=== PATIENT | female | born 1960 | race African-American/Black ===

== ENCOUNTER 2018-10-03 12:06 | Emergency (ER) | payer OTHER | END 2018-10-03 12:35 | disposition home or self-care (01) | LOC: ERS 12:06 | DX: H10.12 Acute atopic conjunctivitis, left eye (principal); K21.9 Gastro-esophageal reflux disease without esophagitis; M10.9 Gout, unspecified; E11.40 Type 2 diabetes mellitus with diabetic neuropathy, unspecified; I10 Essential (primary) hypertension; Z79.899 Other long term (current) drug therapy | CPT/HCPCS: 99282 ==

== ENCOUNTER 2020-07-05 07:06 | Outpatient (CLI) | payer OTHER ==
[2020-07-05 12:48] LABS: #Eosinphils 0.3 10x3/uL (0.0-0.5); #Monocytes 0.3 10x3/uL (0.0-1.1); #Neutrophils 7.5 10x3/uL (1.5-8.4); %Basophils 0.4 % (0.0-2.0); %Eosinophils 3.4 % (0.0-6.0); %Lymphocytes 13.6 % (18.0-47.0); %Neutrophils 78.9 % (40.0-75.0); Hemoglobin 12.5 g/dL (12.0-16.0); Mean Corpuscular HGB CONC 30.3 G/DL (32.0-36.0); Mean Corpuscular Hemoglobin 27.8 PG (27.0-33.0); Mean Corpuscular Volume 91.8 fl (80.0-100.0); Mean Platelet Volume 9.3 fl (7.4-10.4); Platelet Count 258 10x3/uL (130-400); RBC Distribution Width 15.9 % (11.5-14.5); White Blood Cell (WBC) Count 9.6 10x3/uL (4.5-11.0)
[2020-07-05 13:09] LABS: Anion Gap 17 mmol/L (10-20); BUN (Urea Nitrogen) 16 mg/dL (9.8-20.1); Calc. Creatinine Clearance 0 mL/min (70-130); Calcium 9.1 mg/dL (7.8-10.44); Carbon Dioxide 25 mmol/L (22-29); Chloride 95 mmol/L (98-107); Glucose 407 mg/dL (70-105); Potassium 4.2 mmol/L (3.5-5.1); Sodium 133 mmol/L (136-145)
[2020-07-06 09:25] LABS: SARS-CoV-2 MS2 Positive; SARS-CoV-2 N Gene Negative; SARS-CoV-2 S Gene Negative; SARS-CoV-2 by NAA Not Detected (NotDetected); SARS-CoV-2 orf1ab Negative
--- NOTE | 2020-07-09 07:00 | EKG ---
Test Reason : PREOP Blood Pressure : / mmHG Vent. Rate : 084 BPM Atrial Rate : 084 BPM P-R Int : 126 ms QRS Dur : 084 ms QT Int : 404 ms P-R-T Axes : 034 003 074 degrees QTc Int : 477 ms Normal sinus rhythm Inferior infarct , age undetermined , cannot exclude inferior wall aneurysm Cannot rule out Anterior infarct , age undetermined Abnormal ECG No previous ECGs available Confirmed by TREVIN PRYOR, LOS ([id number]) on 07/09/2020 6:59:32 AM Referred By: Deanna LUTZ Confirmed By:LOS ZHONG MD
== END 2020-07-05 07:07 | disposition home or self-care (01) ==
LOC: LABBT 07:06
PROVIDERS: ATTEND Specialist
DX: Z01.818 Encounter for other preprocedural examination (principal); C50.911 Malignant neoplasm of unspecified site of right female breast; Z20.828 Contact with and (suspected) exposure to other viral communicable diseases
CPT/HCPCS: 80048; 85025; 87635; 93005; 93010; U0003

== ENCOUNTER 2020-07-08 07:02 | Day surgery (SDC) | payer OTHER ==
[2020-07-07 10:48] VITALS: BMI 36.5
--- NOTE | 2020-07-08 08:48 | NM ---
Lymphoscintigraphy right breast HISTORY: Right breast cancer. FINDINGS: A total volume of 1 cc liquid containing 420 uCi of technetium 99m filtered sulfur colloid was injected into the skin at the 12:00, 3:00, 6:00, and 9:00 periareolar position of the right breast. Injection sites were massaged by the patient and imaging performed. Immediate imaging shows a focus of increased radiotracer uptake at the axillary tail of the right vin ast. Patient tolerated the procedure well and was transferred to day surgery in good condition. IMPRESSION : Technically successful lymphoscintigraphy right breast revealing a single sentinel lymph node at the axillary tail.
[2020-07-08] MEDS ORDERED: Ketorolac Tromethamine 30 MG/ML VIAL ONE (09:50)
[2020-07-08] MEDS ORDERED: Acetaminophen 500 MG TAB ONE (09:50)
[2020-07-08] MEDS ORDERED: Glycopyrrolate 0.2 MG/ML 5 ML SYRINGE ONE (09:54)
[2020-07-08] MEDS ORDERED: Lidocaine 1% PF 5 ML VIAL ONE (09:54)
[2020-07-08] MEDS ORDERED: PHENYLEPHRINE-NS 100 MCG/ML 10 ML SYRINGE ONE (09:54)
[2020-07-08] MEDS ORDERED: Rocuronium Bromide 10 MG/ML (10ML VIAL) ONE (09:54)
[2020-07-08] MEDS ORDERED: PROPOFOL 200 MG/20 ML VIAL ONE (09:54)
[2020-07-08] MEDS ORDERED: Insulin Regular 300 UNITS/3 ML VIAL ONE (10:02)
[2020-07-08] MEDS ORDERED: Lidocaine 1% w/Epinephrine 1:100K 20 ML VIAL ONE (10:24)
[2020-07-08] MEDS ORDERED: Bupivacaine 0.25% HCL 30 ML VIAL ONE (10:24)
[2020-07-08] MEDS ORDERED: Isosulfan Blue 50 MG/5 ML VIAL ONE (10:24)
[2020-07-08] MEDS ORDERED: Fentanyl 100 MCG/2 ML VIAL ONE (10:26)
--- NOTE | 2020-07-09 15:10 | OP ---
DATE OF PROCEDURE: 07/08/2020 PREOPERATIVE DIAGNOSIS: Right breast cancer. POSTOPERATIVE DIAGNOSIS: Right breast cancer. OPERATION PERFORMED: Right mastectomy with a sentinel lymph node biopsy. ANESTHESIA: General endotracheal. INDICATIONS: The patient is a 60-year-old obese black female. She has poorly controlled diabetes with blood sugars frequently in the 200 to 400 range. She was recently diagnosed with the breast cancer at the 12 o'clock radian of the right breast, fairly close to the nipple-areolar complex. After discussing options with her, she has elected to proceed with a mastectomy rather than breast-conserving surgery. She is not interested in reconstruction. DESCRIPTION OF OPERATION: Informed consent was obtained. The patient was taken to the operating room, where general endotracheal anesthesia was obtained with the patient in the supine position. Lymphoscintigraphy was performed preoperatively, identifying right axillary sentinel lymph nodes. In the operating room, under general anesthesia, I infiltrated 3 cc of Lymphazurin in the periareolar subdermal tissue of the right breast. This was then massaged for 5 minutes. The breast and axilla were then prepped with ChloraPrep and draped in sterile fashion. An elliptical incision was created across the right chest wall to include the nipple-areolar complex. It was carried from the sternal border medially to the inferior aspect of the axilla laterally. Along the superior aspect, the incision was carried through skin and subcutaneous tissue, and laterally, the dissection was carried toward the axilla. The Neoprobe was utilized to identify areas of maximum radio intensity. Dissecting deeply through the clavipectoral fascia, identified the dominant sentinel lymph node, which was blue-stained and highly radioactive. This was dissected circumferentially, and all investing lymphatics were divided between clamps and 3-0 silk ties. I then identified a 2nd sentinel lymph node that had much less radioactivity and no blue-staining. This was dissected circumferentially and removed intact as well. These were submitted for a touch prep, and intraoperative evaluation revealed no evidence of malignancy in either lymph node. Attention was returned to the breast. Flaps were raised along the incision line superiorly, inferiorly, and medially down to the muscular fascia. The breast was then swept off the chest wall in a medial to lateral fashion. Lateral to the pectoralis, the dissection was completed as there was no need to dissect further within the axilla. The specimen was removed intact and tagged with suture for orientation and submitted to Pathology. I then carefully tailored the skin edges. A dog-ear correction was performed medially with inferior diversion. In the lateral aspect, attempt was made to remove the redundant skin and fatty tissue to avoid an excessive axillary mass. After the skin edges were carefully tailored, the wound was irrigated with sterile water, and all irrigant was aspirated. The wound was meticulously inspected for hemostasis, which was intact. I placed two #19 round fluted drains, one into the axilla and one across the chest wall. These were each secured externally with 3-0 nylon suture. The wound was then closed in layers with 3-0 Vicryl and skin tracee. A dressing was applied using Xeroform gauze, fluffed gauze, and a 6-inch Nando wrap dressing. There were no complications. Blood loss was minimal. The patient tolerated the procedure well and was taken to recovery room in stable condition. Job ID: [id number]
== END 2020-07-08 15:53 | disposition home or self-care (01) ==
LOC: SDC 07:02
PROVIDERS: ATTEND Specialist
PROC: 07B50ZX Excision of Right Axillary Lymphatic, Open Approach, Diagnostic (ICD-10-PCS; principal; 2020-07-08)
PROC: 0HTT0ZZ Resection of Right Breast, Open Approach (ICD-10-PCS; principal; 2020-07-08)
DX: C50.811 Malignant neoplasm of overlapping sites of right female breast (principal); E10.40 Type 1 diabetes mellitus with diabetic neuropathy, unspecified; M10.9 Gout, unspecified; I10 Essential (primary) hypertension; G47.30 Sleep apnea, unspecified; K21.9 Gastro-esophageal reflux disease without esophagitis; Z17.0 Estrogen receptor positive status [ER+]; Z79.4 Long term (current) use of insulin; Z79.82 Long term (current) use of aspirin; Z79.899 Other long term (current) drug therapy; Z88.0 Allergy status to penicillin
CPT/HCPCS: 36416; 78195; 88307; 88331; 88342; A9541; J0690; J1815; J1885; J2704; J3010; Q9968; S0020

== ENCOUNTER 2020-07-09 11:36 | Day surgery (SDC) | payer OTHER ==
[2020-07-09] MEDS ORDERED: Lidocaine 1% PF 5 ML VIAL ONE (12:54)
[2020-07-09] MEDS ORDERED: PROPOFOL 200 MG/20 ML VIAL ONE (12:54)
[2020-07-09] MEDS ORDERED: PHENYLEPHRINE-NS 100 MCG/ML 10 ML SYRINGE ONE (12:54)
[2020-07-09] MEDS ORDERED: ePHEDrine/0.9% NaCl/PF SYRINGE 50 mg/10 ml ONE (12:54)
[2020-07-09] MEDS ORDERED: Ondansetron PF 4 MG/2 ML Vial ONE (12:54)
[2020-07-09] MEDS ORDERED: Acetaminophen 500 MG TAB ONE (13:49)
[2020-07-09] MEDS ORDERED: Ketorolac Tromethamine 30 MG/ML VIAL ONE (13:49)
[2020-07-09] MEDS ORDERED: Levofloxacin 500 mg/D5W 100 ml Premix Bag ONE (13:49)
[2020-07-09] MEDS ORDERED: Insulin Regular 300 UNITS/3 ML VIAL ONE (13:49)
[2020-07-09] MEDS ORDERED: Fentanyl 100 MCG/2 ML VIAL ONE (14:06)
--- NOTE | 2020-07-10 20:28 | OP ---
DATE OF PROCEDURE: 07/09/2020 PREOPERATIVE DIAGNOSIS: Right mastectomy hematoma. POSTOPERATIVE DIAGNOSIS: Right mastectomy hematoma. OPERATION PERFORMED: Right mastectomy exploration with hematoma evacuation and control of bleeding. ANESTHESIA: General endotracheal. INDICATIONS: The patient is a 60-year-old black female. She had undergone a right mastectomy and sentinel lymph node biopsy yesterday. This was uneventful and there was negligible blood loss. Some time during the night, she apparently began to have bleeding within her mastectomy wound, which led to her drain clogging with clotted blood. She presented to my office and she had an obvious mastectomy hematoma and I recommended return to the operating room for exploration and evacuation. DESCRIPTION OF OPERATION: Informed consent was obtained. The patient was taken to the operating room, where general anesthesia obtained, patient supine position. Right mastectomy incision was opened in the middle segment of the incision. The tracee were removed and the Vicryl sutures were incised. A large volume of clotted blood was removed from within the mastectomy space. I then irrigated the wound with peroxide and saline to gain a clean operative field. I then carefully explored and examined it for any bleeding. There was one dominant pulsatile arterial bleeding to the lateral aspect of the pectoralis. This was identified and ligated. There were couple of other small bleeding sites across the pectoralis musculature that were controlled with electrocautery. I again copiously irrigated and waited several minutes with gauze within the wound to ensure meticulous hemostasis. At the point that I was satisfied with this, I placed two #19 round fluted drains. One was placed in the axilla and one across the chest wall. These were each secured externally with 3-0 nylon suture. I then closed the segment of the incision that had been opened with 3-0 Vicryl and skin tracee. Xeroform gauze with fluffed gauze and Nando wrap dressing was reapplied. There were no complications. There was less than 20 mL of blood loss during this operation, although there were several 100 mL of clotted blood removed. The patient tolerated the procedure well and was taken to recovery in stable condition. Job ID: [id number]
== END 2020-07-09 17:35 | disposition home or self-care (01) ==
LOC: SDC/OP 11:36
PROVIDERS: ATTEND Specialist
PROC: 0JC60ZZ Extirpation of Matter from Chest Subcutaneous Tissue and Fascia, Open Approach (ICD-10-PCS; principal; 2020-07-09)
DX: L76.32 Postprocedural hematoma of skin and subcutaneous tissue following other procedure (principal); E11.9 Type 2 diabetes mellitus without complications; M10.9 Gout, unspecified; I10 Essential (primary) hypertension; Z79.4 Long term (current) use of insulin; Z79.82 Long term (current) use of aspirin; Z79.899 Other long term (current) drug therapy; Z88.0 Allergy status to penicillin; Z95.0 Presence of cardiac pacemaker
CPT/HCPCS: 36416; J1815; J1885; J1956; J2405; J2704; J3010

== ENCOUNTER 2020-08-02 06:40 | Outpatient (CLI) | payer OTHER ==
[2020-08-02 12:57] LABS: Anion Gap 16 mmol/L (10-20); BUN (Urea Nitrogen) 10 mg/dL (9.8-20.1); Calc. Creatinine Clearance 0 mL/min (70-130); Calcium 8.9 mg/dL (7.8-10.44); Carbon Dioxide 34 mmol/L (22-29); Chloride 93 mmol/L (98-107); Glucose 63 mg/dL (70-105); Potassium 3.6 mmol/L (3.5-5.1); Sodium 139 mmol/L (136-145)
[2020-08-02 13:05] LABS: #Eosinphils 0.6 10x3/uL (0.0-0.5); #Monocytes 0.4 10x3/uL (0.0-1.1); #Neutrophils 6.4 10x3/uL (1.5-8.4); %Basophils 0.2 % (0.0-2.0); %Lymphocytes 20.2 % (18.0-47.0); %Monocytes 3.9 % (0.0-10.0); %Neutrophils 69.3 % (40.0-75.0); Hemoglobin 8.7 g/dL (12.0-16.0); Mean Corpuscular HGB CONC 29.2 G/DL (32.0-36.0); Mean Corpuscular Hemoglobin 26.9 PG (27.0-33.0); Mean Platelet Volume 9.3 fl (7.4-10.4); Platelet Count 265 10x3/uL (130-400); RBC Distribution Width 16.2 % (11.5-14.5); Red Blood Cell (RBC) Count 3.24 10x6/uL (3.90-5.20); White Blood Cell (WBC) Count 9.2 10x3/uL (4.5-11.0)
[2020-08-02 13:36] LABS: Anisocytosis SLIGHT = 6-15 cells (100X) (0-5/hpf); Hypochromia SLIGHT = 6-15 cells (100X) (0-5/hpf); Polychromasia SLIGHT = 2-3 cells (100X) (0-2/hpf)
[2020-08-02 13:37] LABS: Platelet Morphology Comment Appears Adequate; Stomatocytes SLIGHT = 2-5 cells (100X) (0-1/hpf)
[2020-08-03 06:30] LABS: SARS-CoV-2 MS2 Positive; SARS-CoV-2 N Gene Negative; SARS-CoV-2 S Gene Negative; SARS-CoV-2 by NAA Not Detected (NotDetected); SARS-CoV-2 orf1ab Negative
== END 2020-08-02 06:41 | disposition home or self-care (01) ==
LOC: LABBT 06:40
PROVIDERS: ATTEND Specialist
DX: Z01.818 Encounter for other preprocedural examination (principal); Z20.828 Contact with and (suspected) exposure to other viral communicable diseases; C50.911 Malignant neoplasm of unspecified site of right female breast
CPT/HCPCS: 80048; 85025; 87635; U0003

== ENCOUNTER 2020-08-05 11:24 | Day surgery (SDC) | payer OTHER ==
[~2020-08-05 11:24] MED LIST: PROPOFOL 200 MG/20 ML VIAL ONE
[2020-08-05] MEDS ORDERED: Acetaminophen 500 MG TAB ONE ×2 (12:46→12:51)
[2020-08-05] MEDS ORDERED: Ketorolac Tromethamine 30 MG/ML VIAL ONE (12:46)
[2020-08-05] MEDS ORDERED: Levofloxacin 500 mg/D5W 100 ml Premix Bag ONE (13:22)
[2020-08-05] MEDS ORDERED: Lidocaine 1% w/Epinephrine 1:100K 20 ML VIAL ONE (14:53)
[2020-08-05] MEDS ORDERED: Bupivacaine 0.25% HCL 30 ML VIAL ONE (14:53)
[2020-08-05] MEDS ORDERED: Fentanyl 100 MCG/2 ML VIAL ONE (15:07)
[2020-08-05] MEDS ORDERED: Midazolam HCl 2 mg/2 ml Vial ONE (15:07)
--- NOTE | 2020-08-05 16:26 | RAD ---
EXAM: Single view of the chest HISTORY: Mediport placement COMPARISON: 08/02/2020 FINDINGS: Single view of the chest shows a normal sized cardiomediastinal silhouette. Atheroscleroti c calcifications are seen in the aorta. The pacemaker is unchanged in position. There is been interval placement of a right subclavian Mediport with its tip in the superior vena cava. No pneumoth orax is seen. There is no evidence of consolidation, mass, or pleural effusion. No acute osseous abnormality. IMPRESSION: Status post Mediport placement without evidence of complication.
--- NOTE | 2020-08-08 17:29 | OP ---
DATE OF PROCEDURE: 08/05/2020 PREOPERATIVE DIAGNOSIS: Right breast cancer. POSTOPERATIVE DIAGNOSIS: Right breast cancer. PROCEDURE PERFORMED: Placement of right subclavian standard-sized power compatible MediPort. ANESTHESIA: Total intravenous anesthesia with local using a mixture of 1% lidocaine with epinephrine and 0.25% Marcaine. INDICATIONS: The patient is a 60-year-old black female, whom I had previously performed a right mastectomy. She was found to have an aggressive cancer with a high recurrence score and chemotherapy has been recommended. MediPort placement is requested for chemotherapy administration. The patient has a left chest wall pacemaker. In light of this and the lack of need for radiation on the right side, I decided to place her MediPort on the right side, even though that is ipsilateral to her mastectomy. DESCRIPTION OF OPERATION: Informed consent was obtained. The patient was taken to the operating room where total intravenous anesthesia was obtained with the patient in supine position. Right chest wall was prepped with ChloraPrep and draped in sterile fashion. Local anesthetic was infiltrated. Large gauge needle was advanced under the clavicle into subclavian vein on the initial pass. Guidewire was passed through this needle and fluoroscopically confirmed to enter the superior vena cava. Additional local anesthetic was infiltrated and transverse incision was created based on needle insertion site. Subcutaneous pocket was dissected. Introducer dilator was passed over the guidewire again using fluoroscopic guidance. Catheter was passed through the introducer which was then removed in the usual peel-apart fashion. Catheter was trimmed to appropriate length and secured to the locking hub of the MediPort. The port was secured to the pectoral fascia with two interrupted sutures of 3-0 Prolene. The wound was closed in layers with 3-0 and 4-0 Monocryl. The port aspirated blood freely and was flushed with heparinized saline. Dermabond was placed externally. There were no complications and essentially no blood loss. I then obtained an ultrasound device to examine her right chest wall. At her last office visit, I had aspirated a postoperative seroma, removing about 50 mL of fluid. She did not have a substantial seroma by palpation, but her obesity makes it difficult to examine this. The ultrasound did in fact show a seroma which was substantially smaller than at last visit. I decided to aspirate this while she was here. The chest wall was prepped inferior to the mastectomy incision with alcohol. Large gauge needle was advanced uneventfully up into the seroma under ultrasound guidance. I was only able to aspirate about 15 mL of fluid at this time. A Band-Aid dressing was applied. The patient tolerated the procedure well and was taken to recovery in stable condition. Job ID: [id number]
== END 2020-08-05 17:20 | disposition home or self-care (01) ==
LOC: SDC 11:24
PROVIDERS: ATTEND Specialist
PROC: 02HV33Z Insertion of Infusion Device into Superior Vena Cava, Percutaneous Approach (ICD-10-PCS; principal; 2020-08-05)
DX: C50.911 Malignant neoplasm of unspecified site of right female breast (principal); E11.9 Type 2 diabetes mellitus without complications; I10 Essential (primary) hypertension; M10.9 Gout, unspecified; I97.631 Postprocedural hematoma of a circulatory system organ or structure following cardiac bypass; Z17.0 Estrogen receptor positive status [ER+]; Z79.4 Long term (current) use of insulin; Z79.899 Other long term (current) drug therapy; Z88.0 Allergy status to penicillin
CPT/HCPCS: 71045; C1788; J1642; J1885; J1956; J2250; J2704; J3010; S0020

== ENCOUNTER 2020-08-18 12:32 | Day surgery (SDC) | payer OTHER, MEDICAID ==
[~2020-08-18 12:32] MED LIST changes: +Acetaminophen 500 MG TAB PO PRN; -PROPOFOL 200 MG/20 ML VIAL ONE; +Sodium Chloride 0.9% 20 ML ONE; +diphenhydrAMINE 25 MG CAP PO PRN
[2020-08-18 16:07] VITALS: BP 132/69; TEMP 99
[2020-08-18 17:04] LABS: Anisocytosis SLIGHT = 6-15 cells (100X) (0-5/hpf); Band 12 % (5-11); Basophilic Stippling SLIGHT = 1-2 cells (100X) (None Seen); Differential Comment Blast-Like Cell(s); Dohle Bodies SLIGHT; Hemoglobin 8.8 g/dL (12.0-16.0); Lymphocytes 10 % (21-51); MDiff Complete? YES; Mean Corpuscular HGB CONC 31.4 g/dL (32.0-36.0); Mean Corpuscular Hemoglobin 27.7 pg (27.0-31.0); Mean Corpuscular Volume 88.1 fL (78.0-98.0); Mean Platelet Volume 7.1 fL (7.4-10.4); Metamyelocyte 4 % (0-0); Monocytes 6 % (0-10); Myelocyte 3 % (0-0); Neutrophil 62 % (42-75); Nucleated RBC 2 % (0); Platelet Count 220 thou/uL (130-400); Platelet Morphology Comment Appears Adequate; Polychromasia SLIGHT = 2-3 cells (100X) (0-2/hpf); Promyelocytes 1 % (0-0); RBC Distribution Width 15.7 % (11.5-14.5); Red Blood Cell (RBC) Count 3.17 mill/uL (4.20-5.40); Reflex for Review?? YES; Toxic Granulation SLIGHT; White Blood Cell (WBC) Count 15.1 thou/uL (4.8-10.8)
== END 2020-08-18 16:12 | disposition home or self-care (01) ==
LOC: ONC/OP 12:32
PROVIDERS: ATTEND Internal Medicine Hematology & Oncology
PROC: 30233N1 Transfusion of Nonautologous Red Blood Cells into Peripheral Vein, Percutaneous Approach (ICD-10-PCS; principal; 2020-08-18)
DX: D64.9 Anemia, unspecified (principal); D69.6 Thrombocytopenia, unspecified; Z88.0 Allergy status to penicillin
CPT/HCPCS: 36430; 85025; 85060; 86850; 86900; 86901; J1642; P9016; Q0163

== ENCOUNTER 2021-06-30 08:32 | Outpatient (CLI) | payer OTHER | END 2021-06-30 08:33 | disposition home or self-care (01) | LOC: BICMAMMO 08:32 | PROVIDERS: ATTEND Specialist | DX: Z08 Encounter for follow-up examination after completed treatment for malignant neoplasm (principal); Z85.3 Personal history of malignant neoplasm of breast | CPT/HCPCS: G0279 ==

== ENCOUNTER 2022-11-14 23:26 | Inpatient (IN) | payer OTHER ==
[2022-11-15] MEDS ORDERED: Acetaminophen 325 MG TAB PO PRN (01:30)
[2022-11-15] MEDS ORDERED: Dextrose 50% Abboject 50 ML SYRINGE SLOW IVP PRN (01:30)
[2022-11-15] MEDS ORDERED: Lorazepam 2 MG/ML VIAL SLOW IVP PRN (01:30)
[2022-11-15] MEDS ORDERED: HumaLOG 300 UNITS/3 ML VIAL SC PRN (01:30)
[2022-11-15] MEDS ORDERED: Ondansetron ODT 4 MG TAB PO PRN (01:30)
[2022-11-15] MEDS ORDERED: Dextrose 5% in Water 1,000 ML IV PRN (01:30)
[2022-11-15] MEDS ORDERED: Nitroglycerin 2% Ointment 1 INCH/1 GM Packet TOP PRN (01:35)
[2022-11-15] MEDS ORDERED: Sodium Chloride 0.9% 1,000 ML IV SCH (01:45)
[2022-11-15] MEDS ORDERED: Ondansetron ODT 4 MG TAB SL PRN (01:45)
[2022-11-15] MEDS ORDERED: Ondansetron PF 4 MG/2 ML Vial IVP PRN (01:45)
[2022-11-15 02:08] VITALS: BMI 35.9
[2022-11-15 02:47] LABS: Troponin I 0.014 ng/mL (< 0.028)
[2022-11-15 03:25] LABS: Magnesium 1.8 mg/dL (1.6-2.6)
[2022-11-15 03:28] LABS: Anion Gap 18 mmol/L (10-20); BUN (Urea Nitrogen) 70 mg/dL (9.8-20.1); Calc. Creatinine Clearance 28 mL/min (70-130); Calcium 7.8 mg/dL (7.8-10.44); Carbon Dioxide 37 mmol/L (23-31); Cardiac Risk 7.8 (Less than 4.5); Chloride 79 mmol/L (98-107); Cholesterol 242 mg/dl (< 200 Desired); Estimated GFR 19; Glucose 185 mg/dL (80-115); HDL Cholesterol 31 mg/dL (>60 Neg Risk); LDL Cholesterol, Calculated 166 mg/dL; Sodium 131 mmol/L (136-145); Triglycerides 224 mg/dL (Less than 150)
[2022-11-15 03:39] LABS: Potassium 2.6 mmol/L (3.5-5.1)
[2022-11-15] MEDS ORDERED: Magnesium 2 GM/50 ML(in water) 2 GM in Premix Bag 1 BAG IVPB SCH (04:00)
[2022-11-15] MEDS ORDERED: Potassium Chloride 20 MEQ TAB PO SCH ×4 (04:15→17:30)
[2022-11-15] MEDS ORDERED: Potassium Chloride 20 MEQ in Premix Bag 1 BAG IVPB SCH (04:30)
[2022-11-15 05:46] LABS: #Eosinphils 0.2 thou/uL (0.0-0.7); #Lymphocytes 1.2 thou/uL (1.20-3.40); #Monocytes 0.3 thou/uL (0.11-0.59); #Neutrophils 11.9 thou/uL (1.40-6.50); %Basophils 0.2 % (0.0-1.0); %Eosinophils 1.6 % (0.0-10.0); %Lymphocytes 8.5 % (21.0-51.0); %Monocytes 2.5 % (0.0-10.0); %Neutrophils 87.2 % (42.0-75.0); Hemoglobin 11.7 g/dL (12.0-16.0); Mean Corpuscular HGB CONC 32.6 g/dL (32.0-36.0); Mean Corpuscular Hemoglobin 30.8 pg (27.0-31.0); Mean Corpuscular Volume 94.5 fl (78.0-98.0); Mean Platelet Volume 7.4 fL (7.4-10.4); Platelet Count 262 10x3/uL (130-400); RBC Distribution Width 16.4 % (11.5-14.5); Red Blood Cell (RBC) Count 3.79 mill/uL (4.20-5.40); White Blood Cell (WBC) Count 13.6 10x3/uL (4.8-10.8)
[2022-11-15 06:13] LABS: Troponin I Less than 0.010 ng/mL (< 0.028)
[2022-11-15 08:54] LABS: Anion Gap 15 mmol/L (10-20); BUN (Urea Nitrogen) 67 mg/dL (9.8-20.1); Calc. Creatinine Clearance 29 mL/min (70-130); Calcium 7.7 mg/dL (7.8-10.44); Carbon Dioxide 37 mmol/L (23-31); Chloride 82 mmol/L (98-107); Estimated GFR 21; Glucose 139 mg/dL (80-115); Potassium 3.1 mmol/L (3.5-5.1); Sodium 131 mmol/L (136-145)
[2022-11-15] MEDS: Heparin 5,000 UNITS/ML VIAL SC SCH ×3 (08:54→21:23)
[2022-11-15] MEDS ORDERED: Ezetimibe 10 MG TAB PO SCH ×2 (09:00→10:30)
[2022-11-15 11:25] LABS: Amphetamine Not Detected (NotDetected); Barbiturates Screen Not Detected (NotDetected); Benzodiazepine Screen Not Detected (NotDetected); Cocaine Metabolite Screen Not Detected (NotDetected); Methadone Not Detected (NotDetected); Methamphetamine Not Detected (NotDetected); Opiate Screen Not Detected (NotDetected); Oxycodone Screen Not Detected (NotDetected); Phencyclidine (PCP) Not Detected (NotDetected); THC/Cannabinoid Screen Not Detected (NotDetected); Tricyclic Screen Not Detected (NotDetected)
[2022-11-15 12:38] LABS: Potassium 3.7 mmol/L (3.5-5.1)
[2022-11-15] MEDS: HumaLOG 300 UNITS/3 ML VIAL SC PRN (13:18)
[2022-11-15] MEDS ORDERED: Gabapentin 300 MG CAP PO SCH (13:45)
[2022-11-15] MEDS ORDERED: Spironolactone 100 MG TAB PO SCH (21:00)
[2022-11-15] MEDS ORDERED: Rosuvastatin 20 MG TAB PO SCH (21:00)
[2022-11-15] MEDS: Gabapentin 300 MG CAP PO SCH (21:23)
[2022-11-15] MEDS: Cyclobenzaprine 10 MG TAB PO SCH (21:23)
[2022-11-16] MEDS: Sildenafil Citrate 20 MG TAB PO SCH ×4 (00:26→21:53)
[2022-11-16] MEDS ORDERED: Allopurinol 100 MG TAB PO SCH ×2 (08:00→09:00)
[2022-11-16 08:10] LABS: #Eosinphils 0.2 thou/uL (0.0-0.7); #Lymphocytes 1.2 thou/uL (1.20-3.40); #Monocytes 0.3 thou/uL (0.11-0.59); #Neutrophils 6.7 thou/uL (1.40-6.50); %Basophils 0.1 % (0.0-1.0); %Eosinophils 2.8 % (0.0-10.0); %Lymphocytes 13.6 % (21.0-51.0); %Monocytes 3.6 % (0.0-10.0); %Neutrophils 79.9 % (42.0-75.0); Hemoglobin 11.8 g/dL (12.0-16.0); Mean Corpuscular HGB CONC 31.2 g/dL (32.0-36.0); Mean Corpuscular Hemoglobin 29.9 pg (27.0-31.0); Mean Corpuscular Volume 95.8 fl (78.0-98.0); Mean Platelet Volume 6.8 fL (7.4-10.4); Platelet Count 290 10x3/uL (130-400); RBC Distribution Width 16.3 % (11.5-14.5); Red Blood Cell (RBC) Count 3.95 mill/uL (4.20-5.40); White Blood Cell (WBC) Count 8.4 10x3/uL (4.8-10.8)
[2022-11-16 08:32] LABS: ALT (SGPT) 10 U/L (8-55); AST (SGOT) 17 U/L (5-34); Albumin 3.4 g/dL (3.4-4.8); Alkaline Phosphatase 100 U/L (40-110); Anion Gap 17 mmol/L (10-20); BUN (Urea Nitrogen) 57 mg/dL (9.8-20.1); Bilirubin, Total 0.4 mg/dL (0.2-1.2); Calc. Creatinine Clearance 37 mL/min (70-130); Calcium 7.9 mg/dL (7.8-10.44); Carbon Dioxide 29 mmol/L (23-31); Chloride 91 mmol/L (98-107); Estimated GFR 28; Globulin 4.2 g/dL (2.4-3.5); Glucose 144 mg/dL (80-115); Potassium 3.4 mmol/L (3.5-5.1); Protein, Total 7.6 g/dL (5.8-8.1); Sodium 134 mmol/L (136-145)
[2022-11-16] MEDS: Cyclobenzaprine 10 MG TAB PO SCH ×2 (08:37→21:49)
[2022-11-16] MEDS: Cholecalciferol 1,000 UNITS (25 MCG) TAB PO SCH (08:38)
[2022-11-16] MEDS: Aspirin Chewable 81 MG TAB PO SCH (08:38)
[2022-11-16] MEDS: Levothyroxine Sodium 100 MCG TAB PO SCH (08:38)
[2022-11-16] MEDS: Thiamine 100 MG TAB PO SCH (08:39)
[2022-11-16] MEDS: Ezetimibe 10 MG TAB PO SCH (08:39)
[2022-11-16] MEDS: Empagliflozin 25 MG TAB PO SCH (08:39)
[2022-11-16] MEDS: Gabapentin 300 MG CAP PO SCH ×2 (08:40→21:54)
[2022-11-16] MEDS: Fish Oil 1,000 MG CAP PO SCH (08:40)
[2022-11-16] MEDS: Heparin 5,000 UNITS/ML VIAL SC SCH ×3 (08:40→21:49)
[2022-11-16] MEDS ORDERED: Metolazone 5 MG TAB PO SCH (09:00)
[2022-11-16] MEDS ORDERED: Metoclopramide HCl 10 MG TAB PO SCH (09:00)
[2022-11-16] MEDS: Anastrozole 1 MG TAB PO SCH (09:38)
[2022-11-16] MEDS: Furosemide 20 MG TAB PO SCH (09:40)
[2022-11-16] MEDS: Potassium Chloride 20 MEQ TAB PO SCH (11:43)
[2022-11-16] MEDS: HumaLOG 300 UNITS/3 ML VIAL SC PRN ×2 (11:43→17:59)
[2022-11-16] MEDS: Metoclopramide HCl 10 MG TAB PO SCH ×2 (14:44→21:48)
[2022-11-16] MEDS ORDERED: Rosuvastatin 10 MG TAB PO SCH (21:00)
[2022-11-16] MEDS ORDERED: Potassium Chloride 20 MEQ TAB PO SCH (21:00)
[2022-11-17 03:58] VITALS: TEMP 97.8
[2022-11-17 04:52] LABS: #Eosinphils 0.3 thou/uL (0.0-0.7); #Lymphocytes 1.2 thou/uL (1.20-3.40); #Monocytes 0.3 thou/uL (0.11-0.59); %Basophils 0.2 % (0.0-1.0); %Eosinophils 3.6 % (0.0-10.0); %Lymphocytes 15.1 % (21.0-51.0); %Monocytes 3.8 % (0.0-10.0); %Neutrophils 77.3 % (42.0-75.0); Hemoglobin 12.3 g/dL (12.0-16.0); Mean Corpuscular Hemoglobin 30.8 pg (27.0-31.0); Mean Corpuscular Volume 96.2 fl (78.0-98.0); Mean Platelet Volume 7.1 fL (7.4-10.4); Platelet Count 258 10x3/uL (130-400); RBC Distribution Width 16.4 % (11.5-14.5); White Blood Cell (WBC) Count 7.8 10x3/uL (4.8-10.8)
[2022-11-17 05:20] LABS: ALT (SGPT) 9 U/L (8-55); AST (SGOT) 22 U/L (5-34); Albumin 3.4 g/dL (3.4-4.8); Alkaline Phosphatase 114 U/L (40-110); Anion Gap 17 mmol/L (10-20); BUN (Urea Nitrogen) 58 mg/dL (9.8-20.1); Bilirubin, Total 0.2 mg/dL (0.2-1.2); Calc. Creatinine Clearance 35 mL/min (70-130); Calcium 9.3 mg/dL (7.8-10.44); Carbon Dioxide 28 mmol/L (23-31); Chloride 91 mmol/L (98-107); Estimated GFR 26; Globulin 4.3 g/dL (2.4-3.5); Glucose 242 mg/dL (80-115); Potassium 4.3 mmol/L (3.5-5.1); Protein, Total 7.7 g/dL (5.8-8.1); Sodium 132 mmol/L (136-145)
[2022-11-17] MEDS: Sildenafil Citrate 20 MG TAB PO SCH ×2 (06:43→15:34)
[2022-11-17] MEDS: HumaLOG 300 UNITS/3 ML VIAL SC PRN (06:46)
[2022-11-17] MEDS ORDERED: Insulin Glargine 30 UNITS/0.3 ML VIAL SC SCH (09:00)
[2022-11-17] MEDS: Potassium Chloride 20 MEQ TAB PO SCH (09:34)
[2022-11-17] MEDS: Metoclopramide HCl 10 MG TAB PO SCH ×2 (09:35→15:33)
[2022-11-17] MEDS: Thiamine 100 MG TAB PO SCH (09:35)
[2022-11-17] MEDS: Gabapentin 300 MG CAP PO SCH (09:36)
[2022-11-17] MEDS: Fish Oil 1,000 MG CAP PO SCH (09:36)
[2022-11-17] MEDS: Furosemide 20 MG TAB PO SCH (09:36)
[2022-11-17] MEDS: Ezetimibe 10 MG TAB PO SCH (09:36)
[2022-11-17] MEDS: Aspirin Chewable 81 MG TAB PO SCH (09:36)
[2022-11-17] MEDS: Cyclobenzaprine 10 MG TAB PO SCH (09:37)
[2022-11-17] MEDS: Cholecalciferol 1,000 UNITS (25 MCG) TAB PO SCH (09:37)
[2022-11-17] MEDS: Anastrozole 1 MG TAB PO SCH (09:37)
[2022-11-17] MEDS: Levothyroxine Sodium 100 MCG TAB PO SCH (09:38)
[2022-11-17] MEDS: Empagliflozin 25 MG TAB PO SCH (09:38)
[2022-11-17] MEDS: Heparin 5,000 UNITS/ML VIAL SC SCH ×2 (09:42→15:34)
[2022-11-17 12:01] VITALS: BP 130/75
[2022-11-17] MEDS ORDERED: Adenosine 6 MG/2 ML VIAL ONE (15:15)
== END 2022-11-17 17:35 | disposition home or self-care (01) | DRG 638 ==
LOC: 2NO 11-15 01:06 → OBSVTOIN 11-16 11:56
PROVIDERS: ADMIT Family Medicine; ATTEND Family Medicine
PROC: 4B02XSZ Measurement of Cardiac Pacemaker, External Approach (ICD-10-PCS; principal; 2022-11-16)
DX: E11.649 Type 2 diabetes mellitus with hypoglycemia without coma (principal); I13.0 Hypertensive heart and chronic kidney disease with heart failure and stage 1 through stage 4 chronic kidney disease, or unspecified chronic kidney disease; I50.32 Chronic diastolic (congestive) heart failure; R07.89 Other chest pain; N18.4 Chronic kidney disease, stage 4 (severe); N17.9 Acute kidney failure, unspecified; E11.22 Type 2 diabetes mellitus with diabetic chronic kidney disease; E78.5 Hyperlipidemia, unspecified; G47.33 Obstructive sleep apnea (adult) (pediatric); K76.0 Fatty (change of) liver, not elsewhere classified; F10.10 Alcohol abuse, uncomplicated; I27.20 Pulmonary hypertension, unspecified; I25.10 Atherosclerotic heart disease of native coronary artery without angina pectoris; Z95.1 Presence of aortocoronary bypass graft; Z95.0 Presence of cardiac pacemaker; Z88.0 Allergy status to penicillin; Z88.8 Allergy status to other drugs, medicaments and biological substances; Z79.899 Other long term (current) drug therapy; Z79.82 Long term (current) use of aspirin; Z79.4 Long term (current) use of insulin; Z99.89 Dependence on other enabling machines and devices; Z85.3 Personal history of malignant neoplasm of breast; Z90.49 Acquired absence of other specified parts of digestive tract; Z83.3 Family history of diabetes mellitus; Z80.0 Family history of malignant neoplasm of digestive organs; Z99.81 Dependence on supplemental oxygen
CPT/HCPCS: 36415; 36416; 80048; 80053; 80061; 80306; 83735; 84443; 84484; 85025; 93005; 93010; 93306; 96372; 96374; G0378; J1644; J1815; J3475; J3480; J7050

== ENCOUNTER 2022-11-29 07:53 | Outpatient (CLI) | payer OTHER | END 2022-11-29 07:54 | disposition home or self-care (01) | LOC: BICMAMMO 07:53 | PROVIDERS: ATTEND Student in an Organized Health Care Education/Training Program | DX: Z08 Encounter for follow-up examination after completed treatment for malignant neoplasm (principal); Z85.3 Personal history of malignant neoplasm of breast | CPT/HCPCS: G0279 ==

== ENCOUNTER 2022-12-26 11:35 | Outpatient (CLI) | payer OTHER | END 2022-12-26 11:36 | disposition home or self-care (01) | LOC: RAD 11:35 | PROVIDERS: ATTEND Student in an Organized Health Care Education/Training Program | DX: M46.1 Sacroiliitis, not elsewhere classified (principal); M47.816 Spondylosis without myelopathy or radiculopathy, lumbar region | CPT/HCPCS: 72100; 72202 ==

== ENCOUNTER 2024-07-01 12:49 | Outpatient (CLI) | payer BC | END 2024-07-01 12:50 | disposition home or self-care (01) | LOC: RAD 12:49 | PROVIDERS: ATTEND Family Medicine | DX: Z01.818 Encounter for other preprocedural examination (principal); K75.81 Nonalcoholic steatohepatitis (NASH); R10.11 Right upper quadrant pain; Z95.0 Presence of cardiac pacemaker | CPT/HCPCS: 71046 ==

== ENCOUNTER 2024-07-04 10:46 | Outpatient (CLI) | payer BC ==
[2024-07-04] MEDS ORDERED: Magnevist 469MG/ML 20 ML VIAL ONE (12:37)
== END 2024-07-04 10:47 | disposition home or self-care (01) ==
LOC: MRI 10:46
PROVIDERS: ATTEND Physician Assistant Medical
DX: K75.81 Nonalcoholic steatohepatitis (NASH) (principal); R10.11 Right upper quadrant pain; K74.60 Unspecified cirrhosis of liver
CPT/HCPCS: 36415; 74183; 82565

== ENCOUNTER 2024-08-26 18:15 | Inpatient (IN) | payer BC ==
[2024-08-27] MEDS ORDERED: Glucagon 1 MG/ML KIT IM PRN (00:01)
[2024-08-27] MEDS ORDERED: Dextrose 50% Abboject 50 ML SYRINGE SLOW IVP PRN (00:01)
[2024-08-27] MEDS ORDERED: Dextrose 5% in Water 1,000 ML IV PRN (00:01)
[2024-08-27] MEDS ORDERED: Insulin Lispro 100 UNIT/ML 10 ML VIAL SC PRN (00:01)
[2024-08-27] MEDS ORDERED: Acetaminophen 650 MG Suppository PR PRN (00:01)
[2024-08-27] MEDS: Furosemide 40 MG (4 mL) VIAL SLOW IVP SCH (00:53)
[2024-08-27] MEDS: Ondansetron PF 4 MG/2 ML Vial IVP PRN (00:53)
[2024-08-27] MEDS: Simethicone Chewable 80 MG TAB PO SCH (00:54)
[2024-08-27 03:21] LABS: #Basophils Less than 0.03 10x3/uL (0.0-0.2); %Basophils 0.1 % (0.0-1.0); %Lymphocytes 6.9 % (21.0-51.0); %Monocytes 5.4 % (0.0-10.0); %Neutrophils 85.2 % (42.0-75.0); Hematocrit 34.9 % (36.0-47.0); Hemoglobin 10.3 g/dL (12.0-16.0); Mean Corpuscular HGB CONC 29.5 g/dL (32.0-36.0); Mean Corpuscular Hemoglobin 28.1 pg (27.0-31.0); Mean Corpuscular Volume 95.1 fL (78.0-98.0); Platelet Count 156 10x3/uL (130-400); RBC Distribution Width 16.7 % (11.5-14.5); Red Blood Cell (RBC) Count 3.67 mill/uL (4.20-5.40)
[2024-08-27 03:44] LABS: ALT (SGPT) 20 U/L (8-55); AST (SGOT) 25 U/L (5-34); Albumin 2.5 g/dL (3.4-4.8); Alkaline Phosphatase 123 U/L (40-110); Anion Gap 13 mmol/L (10-20); BUN (Urea Nitrogen) 27 mg/dL (9.8-20.1); Bilirubin, Total 0.2 mg/dL (0.2-1.2); Calc. Creatinine Clearance 60 mL/min (70-130); Calcium 10.5 mg/dL (7.8-10.44); Carbon Dioxide 22 mmol/L (23-31); Chloride 111 mmol/L (98-107); Estimated GFR 44; Globulin 4.8 g/dL (2.4-3.5); Glucose 132 mg/dL (80-115); Magnesium 2.3 mg/dL (1.6-2.6); Potassium 4.5 mmol/L (3.5-5.1); Protein, Total 7.3 g/dL (5.8-8.1); Sodium 141 mmol/L (136-145)
[2024-08-27] MEDS: Sildenafil Citrate 20 MG TAB PO SCH (08:22)
[2024-08-27] MEDS: busPIRone HCl 10 MG TAB PO SCH (08:22)
[2024-08-27] MEDS: Anastrozole 1 MG TAB PO SCH (08:22)
[2024-08-27] MEDS: Enoxaparin 40 MG (0.4 mL) SYRINGE SC SCH (08:22)
[2024-08-27] MEDS: Aspirin Chewable 81 MG TAB PO SCH (08:22)
[2024-08-27] MEDS: Metoprolol Tartrate 25 MG TAB PO SCH (08:22)
[2024-08-27] MEDS: Polyethylene Glycol 3350 17 GM Packet PO SCH (08:23)
[2024-08-27] MEDS: hydrALAZINE 25 MG TAB PO SCH ×3 (08:23→20:37)
[2024-08-27] MEDS: FLU (Fluarix Triv) TS24-25(6MOS UP)/PF 45 MCG/0.5 ML Syringe IM ONE (08:35)
[2024-08-27 09:01] LABS: Amphetamine Not Detected (NotDetected); Barbiturates Screen Not Detected (NotDetected); Benzodiazepine Screen Not Detected (NotDetected); Cocaine Metabolite Screen Not Detected (NotDetected); Methadone Not Detected (NotDetected); Methamphetamine Not Detected (NotDetected); Opiate Screen Not Detected (NotDetected); Oxycodone Screen Not Detected (NotDetected); Phencyclidine (PCP) Not Detected (NotDetected); THC/Cannabinoid Screen Not Detected (NotDetected); Tricyclic Screen Not Detected (NotDetected)
[2024-08-27] MEDS ORDERED: Promethazine HCl 25 MG in Sodium Chloride 0.9% 50 ML IVPB PRN (09:16)
[2024-08-27] MEDS: hydrALAZINE 20 MG/ML VIAL SLOW IVP PRN (09:20)
[2024-08-27] MEDS: Promethazine HCl 25 MG/ML VIAL IM PRN (10:13)
[2024-08-27] MEDS: Levothyroxine Sodium 100 MCG TAB PO SCH (11:51)
[2024-08-27] MEDS ORDERED: cefTRIAXone\\ROCEPHIN 2 GM in Sodium Chloride 0.9% 100 ML IVPB SCH (17:00)
[2024-08-27] MEDS: Rosuvastatin 10 MG TAB PO SCH (20:36)
[2024-08-28] MEDS: Levothyroxine Sodium 100 MCG TAB PO SCH (06:21)
[2024-08-28] MEDS: hydrALAZINE 25 MG TAB PO SCH (08:31)
[2024-08-28] MEDS: NIFEdipine XL 30 MG ER.TAB PO SCH (08:31)
[2024-08-28 10:01] LABS: #Basophils Less than 0.03 10x3/uL (0.0-0.2); %Basophils 0.2 % (0.0-1.0); %Eosinophils 2.1 % (0.0-10.0); %Lymphocytes 5.5 % (21.0-51.0); %Monocytes 4.9 % (0.0-10.0); %Neutrophils 86.9 % (42.0-75.0); Hematocrit 35.8 % (36.0-47.0); Hemoglobin 10.5 g/dL (12.0-16.0); Mean Corpuscular HGB CONC 29.3 g/dL (32.0-36.0); Mean Corpuscular Hemoglobin 28.1 pg (27.0-31.0); Mean Corpuscular Volume 95.7 fL (78.0-98.0); Mean Platelet Volume 8.8 fL (7.4-10.4); Platelet Count 194 10x3/uL (130-400); RBC Distribution Width 16.8 % (11.5-14.5); Red Blood Cell (RBC) Count 3.74 mill/uL (4.20-5.40)
[2024-08-28 11:06] LABS: Calc. Creatinine Clearance 47 mL/min (70-130); Estimated GFR 33
[2024-08-28 11:08] LABS: ALT (SGPT) 16 U/L (8-55); AST (SGOT) 19 U/L (5-34); Albumin 2.5 g/dL (3.4-4.8); Alkaline Phosphatase 127 U/L (40-110); Anion Gap 12 mmol/L (10-20); BUN (Urea Nitrogen) 39 mg/dL (9.8-20.1); Bilirubin, Total 0.2 mg/dL (0.2-1.2); Calcium 10.5 mg/dL (7.8-10.44); Carbon Dioxide 23 mmol/L (23-31); Chloride 110 mmol/L (98-107); Globulin 4.5 g/dL (2.4-3.5); Glucose 182 mg/dL (80-115); Potassium 3.8 mmol/L (3.5-5.1); Sodium 141 mmol/L (136-145)
[2024-08-28] MEDS: Acetaminophen 325 MG TAB PO PRN (20:16)
[2024-08-28] MEDS: Simethicone Chewable 80 MG TAB PO PRN (20:21)
[2024-08-29] MEDS: Dicyclomine 10 MG CAP PO SCH (00:07)
[2024-08-29] MEDS ORDERED: Lorazepam 0.5 MG TAB PO SCH (00:45)
[2024-08-29] MEDS: Lorazepam 0.5 MG TAB PO SCH (01:16)
[2024-08-29 05:11] LABS: #Basophils Less than 0.03 10x3/uL (0.0-0.2); %Basophils 0.2 % (0.0-1.0); %Eosinophils 2.6 % (0.0-10.0); %Lymphocytes 7.4 % (21.0-51.0); %Monocytes 6.4 % (0.0-10.0); %Neutrophils 82.9 % (42.0-75.0); Hemoglobin 10.5 g/dL (12.0-16.0); Mean Corpuscular Hemoglobin 28.5 pg (27.0-31.0); Mean Corpuscular Volume 95.1 fL (78.0-98.0); Mean Platelet Volume 10.3 fL (7.4-10.4); Platelet Count 143 10x3/uL (130-400); RBC Distribution Width 16.9 % (11.5-14.5); Red Blood Cell (RBC) Count 3.68 mill/uL (4.20-5.40)
[2024-08-29] MEDS: Haloperidol Lactate 5 MG/ML VIAL SLOW IVP SCH (05:20)
[2024-08-29 05:29] LABS: ALT (SGPT) 16 U/L (8-55); AST (SGOT) 31 U/L (5-34); Albumin 2.4 g/dL (3.4-4.8); Alkaline Phosphatase 134 U/L (40-110); Anion Gap 15 mmol/L (10-20); BUN (Urea Nitrogen) 49 mg/dL (9.8-20.1); Bilirubin, Total 0.2 mg/dL (0.2-1.2); Calc. Creatinine Clearance 37 mL/min (70-130); Calcium 10.3 mg/dL (7.8-10.44); Carbon Dioxide 21 mmol/L (23-31); Chloride 110 mmol/L (98-107); Estimated GFR 26; Globulin 4.6 g/dL (2.4-3.5); Glucose 146 mg/dL (80-115); Potassium 4.7 mmol/L (3.5-5.1); Sodium 141 mmol/L (136-145)
[2024-08-29] MEDS: Enoxaparin 30 MG (0.3 mL) SYRINGE SC SCH (09:13)
[2024-08-29] MEDS: NIFEdipine XL 60 MG ER.TAB PO SCH (09:28)
[2024-08-29] MEDS: Insulin Lispro 100 UNIT/ML 10 ML VIAL SC PRN (13:08)
[2024-08-29] MEDS: hydrALAZINE 25 MG TAB PO SCH (17:12)
[2024-08-29 17:47] LABS: Bilirubin Negative (Negative); Blood, Urine Trace (Negative); CAUTI Indications for Culture Dysuria,urgency,freq; Clarity Clear (Clear); Glucose, Urine (Dipstick) 100 mg/dL (Negative); Ketone, Urine Negative (Negative); Leukocyte 25 Leu/uL (Negative); Nitrite Negative (Negative); Protein, Urine (Dipstick) 200 mg/dL (Neg-Trace); Specific Gravity, Urine 1.017 (1.002-1.036); Squamous Epithelial 0-3 HPF (0-3); Urobilinogen Normal mg/dL (Less than 2)
[2024-08-29 18:05] LABS: Creatinine, Urine 97.89 mg/dL (15-278)
[2024-08-29 18:25] LABS: Bacteria/HPF 1+ HPF (None Seen); Urine Culture Reflex No No
[2024-08-29] MEDS: Haloperidol 1 MG TAB PO SCH (21:17)
[2024-08-30] MEDS: Metoclopramide HCl 10 MG (2 mL) VIAL IVP SCH ×2 (00:50→16:30)
[2024-08-30 04:02] LABS: #Basophils Less than 0.03 10x3/uL (0.0-0.2); %Basophils 0.2 % (0.0-1.0); %Eosinophils 1.7 % (0.0-10.0); %Lymphocytes 6.1 % (21.0-51.0); %Monocytes 6.5 % (0.0-10.0); Hematocrit 29.9 % (36.0-47.0); Hemoglobin 8.6 g/dL (12.0-16.0); Mean Corpuscular HGB CONC 28.8 g/dL (32.0-36.0); Mean Corpuscular Hemoglobin 27.8 pg (27.0-31.0); Mean Corpuscular Volume 96.8 fL (78.0-98.0); Mean Platelet Volume 8.8 fL (7.4-10.4); Platelet Count 201 10x3/uL (130-400); RBC Distribution Width 16.5 % (11.5-14.5); Red Blood Cell (RBC) Count 3.09 mill/uL (4.20-5.40)
[2024-08-30 04:13] LABS: ALT (SGPT) 16 U/L (8-55); AST (SGOT) 21 U/L (5-34); Albumin 2.2 g/dL (3.4-4.8); Alkaline Phosphatase 112 U/L (40-110); Anion Gap 14 mmol/L (10-20); BUN (Urea Nitrogen) 95 mg/dL (9.8-20.1); Bilirubin, Total 0.2 mg/dL (0.2-1.2); Calc. Creatinine Clearance 27 mL/min (70-130); Calcium 10.4 mg/dL (7.8-10.44); Carbon Dioxide 23 mmol/L (23-31); Chloride 105 mmol/L (98-107); Estimated GFR 17; Globulin 3.7 g/dL (2.4-3.5); Glucose 204 mg/dL (80-115); Protein, Total 5.9 g/dL (5.8-8.1); Sodium 138 mmol/L (136-145)
[2024-08-30 04:29] LABS: Hypochromia SLIGHT = 6-15 cells HPF (0-5); Platelet Adequacy Comment Platelets Normal
[2024-08-30] MEDS: NIFEdipine XL 60 MG ER.TAB PO SCH (09:35)
[2024-08-30] MEDS: Albumin 25% 25 GM (100 mL) BOT IVPB SCH ×2 (09:36→15:19)
[2024-08-30] MEDS: Sodium Chloride 0.9% 1,000 ML IV SCH (09:36)
[2024-08-30] MEDS: Ipratropium/Albuterol 3 ML NEB NEB PRN (10:25)
[2024-08-30] MEDS: Pantoprazole 40 MG VIAL IVP SCH (15:19)
[2024-08-30 15:57] LABS: Hematocrit 22.9 % (36.0-47.0); Hemoglobin 6.7 g/dL (12.0-16.0); Platelet Count 174 10x3/uL (130-400)
[2024-08-30 19:30] LABS: INR-International Normal Ratio 1.4; PTT 45.3 sec (22.9-36.1); Prothrombin Time 17.1 sec (12.0-14.7)
[2024-08-30] MEDS: Ondansetron ODT 4 MG TAB PO PRN (19:32)
[2024-08-30] MEDS: Lorazepam 2 MG/ML VIAL SLOW IVP PRN (20:28)
[2024-08-30] MEDS: QUEtiapine 25 MG TAB PO SCH (21:00)
[2024-08-31 03:23] LABS: #Basophils Less than 0.03 10x3/uL (0.0-0.2); %Basophils 0.2 % (0.0-1.0); %Eosinophils 2.1 % (0.0-10.0); %Monocytes 5.1 % (0.0-10.0); %Neutrophils 85.6 % (42.0-75.0); Hematocrit 22.3 % (36.0-47.0); Hemoglobin 6.8 g/dL (12.0-16.0); Mean Corpuscular HGB CONC 30.5 g/dL (32.0-36.0); Mean Corpuscular Hemoglobin 28.3 pg (27.0-31.0); Mean Corpuscular Volume 92.9 fL (78.0-98.0); Mean Platelet Volume 8.9 fL (7.4-10.4); Platelet Count 154 10x3/uL (130-400); RBC Distribution Width 16.2 % (11.5-14.5)
[2024-08-31 03:31] LABS: ALT (SGPT) 11 U/L (8-55); AST (SGOT) 16 U/L (5-34); Albumin 3.3 g/dL (3.4-4.8); Alkaline Phosphatase 83 U/L (40-110); Anion Gap 16 mmol/L (10-20); BUN (Urea Nitrogen) 109 mg/dL (9.8-20.1); Bilirubin, Total 0.5 mg/dL (0.2-1.2); Calc. Creatinine Clearance 21 mL/min (70-130); Calcium 10.1 mg/dL (7.8-10.44); Carbon Dioxide 24 mmol/L (23-31); Chloride 109 mmol/L (98-107); Estimated GFR 13; Globulin 2.7 g/dL (2.4-3.5); Glucose 162 mg/dL (80-115); Potassium 3.7 mmol/L (3.5-5.1); Sodium 145 mmol/L (136-145)
[2024-08-31 05:23] VITALS: BMI 38.7
[2024-08-31] MEDS ORDERED: Etomidate 40 MG (20 mL) VIAL ONE (07:51)
[2024-08-31] MEDS ORDERED: SUCCINYLCHOLINE/SOD CL,ISO/PF 200 MG/10 ML SYRINGE FS ONE (07:51)
[2024-08-31] MEDS ORDERED: Lidocaine 2% PF 5 ML VIAL ONE (07:51)
[2024-08-31] MEDS ORDERED: Famotidine/PF 20 mg/2ml Vial ONE (07:57)
[2024-08-31] MEDS ORDERED: Vasopressin 20 UNITS/ML VIAL ONE (07:57)
[2024-08-31] MEDS ORDERED: Ondansetron PF 4 MG/2 ML Vial ONE (08:37)
[2024-08-31] MEDS ORDERED: Ventilator Sedation Protocol FS PRN (09:41)
[2024-08-31] MEDS ORDERED: Morphine 2 MG/ML VIAL SLOW IVP PRN (10:00)
[2024-08-31] MEDS: Propofol 1,000 MG/100 ML VIAL IV PRN (10:00)
[2024-08-31] MEDS: Fentanyl CADD 100 ML IV SCH (10:00)
[2024-08-31] MEDS ORDERED: Propofol BOLUS 1,000 MG/100 ML VIAL IV PRN (10:00)
[2024-08-31] MEDS ORDERED: Lorazepam 2 MG/ML VIAL SLOW IVP PRN (10:00)
[2024-08-31] MEDS ORDERED: Fentanyl BOLUS 250 ML IVPB PRN (10:00)
[2024-08-31 10:40] LABS: Actual Bicarbonate (HCO3a) 22.8 mEq/L (22-28); Base Excess (BEa) -3.8 mEq/L (-2.0 to +3.0); CO2 Tension 48.2 mmHg (35.0-45.0); Calcium, Ionized (arterial) 1.35 mmol/L (1.12-1.30); Carboxyhemoglobin (COHb) 1.4 gm% (0.0-3.0); Hematocrit-ABG 29 % (36.0-47.0); O2 Tension (PaO2), arterial 68.2 mmHg (> 80.0); Potassium - ABG Lab 3.86 mmol/L (3.70-5.30); pH, Arterial 7.292 (7.35-7.45)
[2024-08-31 10:51] LABS: Puncture Site Left Radial artery
[2024-08-31] MEDS: Sodium Chloride 0.9% 1,000 ML IV SCH (10:58)
[2024-08-31] MEDS ORDERED: Acetaminophen 325 MG TAB PER TUBE PRN (11:07)
[2024-08-31] MEDS ORDERED: Acetaminophen 650 MG/20.3 ML UDCUP PER TUBE PRN (11:07)
[2024-08-31] MEDS: Fentanyl CADD 100 ML ONE (11:15)
[2024-08-31] MEDS: Propofol 1,000 MG/100 ML VIAL IV ONE (11:15)
[2024-08-31] MEDS ORDERED: Simethicone Chewable 80 MG TAB PER TUBE PRN (11:20)
[2024-08-31] MEDS: Albumin 25% 25 GM (100 mL) BOT IVPB SCH (14:47)
[2024-08-31 14:55] LABS: Hemoglobin 8.6 g/dL (12.0-16.0); Mean Corpuscular HGB CONC 31.9 g/dL (32.0-36.0); Mean Corpuscular Volume 84.6 fL (78.0-98.0); Mean Platelet Volume 9.3 fL (7.4-10.4); Platelet Count 129 10x3/uL (130-400); Red Blood Cell (RBC) Count 3.19 mill/uL (4.20-5.40)
[2024-08-31] MEDS: busPIRone HCl 10 MG TAB PER TUBE SCH (15:57)
[2024-08-31] MEDS: hydrALAZINE 25 MG TAB PER TUBE SCH (15:57)
[2024-08-31] MEDS: Sildenafil Citrate 20 MG TAB PER TUBE SCH (15:57)
[2024-08-31] MEDS: Octreotide Acetate 1,250 MCG in Sodium Chloride 0.9% 250 ML 250 ML IVPB SCH (17:15)
[2024-08-31] MEDS: Lactulose 20 GM (30 mL) UDCUP PO SCH (20:39)
[2024-08-31] MEDS: QUEtiapine 25 MG TAB PER TUBE SCH (20:39)
[2024-08-31] MEDS: Rosuvastatin 10 MG TAB PER TUBE SCH (20:39)
[2024-08-31] MEDS: Metoprolol Tartrate 25 MG TAB PER TUBE SCH (20:40)
[2024-09-01] MEDS: Levothyroxine Sodium 100 MCG TAB PER TUBE SCH (05:03)
[2024-09-01 05:06] LABS: #Basophils Less than 0.03 10x3/uL (0.0-0.2); %Basophils 0.2 % (0.0-1.0); %Eosinophils 2.5 % (0.0-10.0); %Lymphocytes 9.9 % (21.0-51.0); %Neutrophils 81.2 % (42.0-75.0); Hematocrit 24.8 % (36.0-47.0); Hemoglobin 7.9 g/dL (12.0-16.0); Mean Corpuscular HGB CONC 31.9 g/dL (32.0-36.0); Mean Corpuscular Hemoglobin 27.1 pg (27.0-31.0); Mean Corpuscular Volume 84.9 fL (78.0-98.0); Mean Platelet Volume 9.7 fL (7.4-10.4); Platelet Count 125 10x3/uL (130-400); RBC Distribution Width 19.9 % (11.5-14.5); Red Blood Cell (RBC) Count 2.92 mill/uL (4.20-5.40)
[2024-09-01 05:50] LABS: ALT (SGPT) 11 U/L (8-55); AST (SGOT) 19 U/L (5-34); Albumin 3.5 g/dL (3.4-4.8); Alkaline Phosphatase 89 U/L (40-110); Anion Gap 15 mmol/L (10-20); BUN (Urea Nitrogen) 99 mg/dL (9.8-20.1); Bilirubin, Total 0.6 mg/dL (0.2-1.2); Calc. Creatinine Clearance 23 mL/min (70-130); Calcium 9.9 mg/dL (7.8-10.44); Carbon Dioxide 21 mmol/L (23-31); Chloride 112 mmol/L (98-107); Estimated GFR 14; Globulin 2.1 g/dL (2.4-3.5); Glucose 124 mg/dL (80-115); Potassium 3.3 mmol/L (3.5-5.1); Protein, Total 5.6 g/dL (5.8-8.1); Sodium 145 mmol/L (136-145)
[2024-09-01] MEDS: Amlodipine 5 MG TAB PER TUBE SCH (09:17)
[2024-09-01] MEDS: Furosemide 100 MG (10 mL) VIAL SLOW IVP SCH (09:17)
[2024-09-01] MEDS: Polyethylene Glycol 3350 17 GM Packet PER TUBE SCH (09:18)
[2024-09-01] MEDS: EPOETIN ALFA-EPBX (ESRD) 10,000 UNITS/ML VIAL SC SCH (12:06)
[2024-09-02] MEDS: NIFEdipine XL 60 MG ER.TAB PO SCH (04:14)
[2024-09-02 04:34] LABS: #Basophils Less than 0.03 10x3/uL (0.0-0.2); %Basophils 0.3 % (0.0-1.0); %Eosinophils 2.7 % (0.0-10.0); %Lymphocytes 11.6 % (21.0-51.0); %Monocytes 5.7 % (0.0-10.0); %Neutrophils 77.5 % (42.0-75.0); Hematocrit 30.3 % (36.0-47.0); Hemoglobin 9.8 g/dL (12.0-16.0); Mean Corpuscular HGB CONC 32.3 g/dL (32.0-36.0); Mean Corpuscular Hemoglobin 27.4 pg (27.0-31.0); Mean Corpuscular Volume 84.6 fL (78.0-98.0); Mean Platelet Volume 9.5 fL (7.4-10.4); Platelet Count 138 10x3/uL (130-400); RBC Distribution Width 19.4 % (11.5-14.5); Red Blood Cell (RBC) Count 3.58 mill/uL (4.20-5.40)
[2024-09-02 05:14] LABS: ALT (SGPT) 10 U/L (8-55); AST (SGOT) 15 U/L (5-34); Alkaline Phosphatase 83 U/L (40-110); Anion Gap 16 mmol/L (10-20); BUN (Urea Nitrogen) 102 mg/dL (9.8-20.1); Bilirubin, Total 0.6 mg/dL (0.2-1.2); Calc. Creatinine Clearance 19 mL/min (70-130); Calcium 10.1 mg/dL (7.8-10.44); Carbon Dioxide 19 mmol/L (23-31); Chloride 114 mmol/L (98-107); Estimated GFR 11; Globulin 2.4 g/dL (2.4-3.5); Glucose 128 mg/dL (80-115); Protein, Total 5.4 g/dL (5.8-8.1); Sodium 146 mmol/L (136-145)
[2024-09-02] MEDS ORDERED: Electrolyte Replacement Protocol 1 EACH FS SCH (05:56)
[2024-09-02] MEDS: Potassium Chloride 20 MEQ in Premix 1 BAG IVPB SCH (06:42)
[2024-09-02 08:37] LABS: Magnesium 1.7 mg/dL (1.6-2.6)
[2024-09-02] MEDS ORDERED: Heparin 10,000 UNITS/ 10 ML VIAL ONE (09:43)
[2024-09-02 10:47] LABS: HBSAB Concentration Less than 8.00 mIU/mL; HBsAg Index 0.46 S/CO (0-0.99); Hep B Core Total Ab NONREACTIVE (NonReactive); Hep B Core Total Index 0.11 S/CO (0-0.79); Hep B Surf AB NONREACTIVE (NonReactive); Hep B Surf Ag NONREACTIVE S/CO (NonReactive); Hep C IgG Ab NONREACTIVE S/CO (NonReactive); Hep C Index 0.05 S/CO (0-0.79)
[2024-09-02] MEDS: Furosemide 40 MG (4 mL) VIAL SLOW IVP SCH (12:21)
[2024-09-02] MEDS: Potassium Phosphate 15 MMOL in Sodium Chloride 0.9% 100 ML IVPB SCH (13:43)
[2024-09-03 05:22] LABS: Hemoglobin 8.5 g/dL (12.0-16.0); Mean Corpuscular HGB CONC 32.7 g/dL (32.0-36.0); Mean Corpuscular Hemoglobin 27.6 pg (27.0-31.0); Mean Corpuscular Volume 84.4 fL (78.0-98.0); Mean Platelet Volume 9.7 fL (7.4-10.4); Platelet Count 177 10x3/uL (130-400); RBC Distribution Width 19.5 % (11.5-14.5); Red Blood Cell (RBC) Count 3.08 mill/uL (4.20-5.40)
[2024-09-03 05:43] LABS: Albumin 2.8 g/dL (3.4-4.8); Anion Gap 14 mmol/L (10-20); BUN (Urea Nitrogen) 73 mg/dL (9.8-20.1); Bilirubin, Total 0.5 mg/dL (0.2-1.2); Calc. Creatinine Clearance 24 mL/min (70-130); Carbon Dioxide 21 mmol/L (23-31); Chloride 111 mmol/L (98-107); Estimated GFR 15; Glucose 119 mg/dL (80-115); Potassium 3.3 mmol/L (3.5-5.1); Protein, Total 5.8 g/dL (5.8-8.1); Sodium 143 mmol/L (136-145)
[2024-09-03 05:44] LABS: ALT (SGPT) 9 U/L (8-55); AST (SGOT) 13 U/L (5-34); Anisocytosis SLIGHT = 6-15 cells HPF (0-5); Band 6 % (5-11); Eosinophils 2 % (0-10); Lymphocytes 4 % (21-51); Microcytosis SLIGHT = 6-15 cells HPF (0-5); Monocytes 2 % (0-10); Neutrophil 86 % (42-75); Platelet Adequacy Comment Platelets Normal; Polychromasia SLIGHT = 2-3 cells HPF (0-2); Smudge Cells 14.9 %
[2024-09-03 05:51] LABS: Phosphorus 1.9 mg/dL (2.3-4.7)
[2024-09-03 06:46] LABS: Alkaline Phosphatase 92 U/L (40-110)
[2024-09-03] MEDS ORDERED: Heparin 10,000 UNITS/ 10 ML VIAL ONE (09:39)
[2024-09-03] MEDS: Potassium Chloride 20 MEQ in Premix 1 BAG IVPB SCH (10:04)
[2024-09-03] MEDS ORDERED: Metoclopramide HCl 10 MG (2 mL) VIAL IVP PRN (10:49)
[2024-09-03] MEDS: Glycerin Adult Supp. (12 ct jar) PR SCH (11:46)
[2024-09-03] MEDS ORDERED: Metoclopramide HCl 10 MG (2 mL) VIAL IVP SCH (14:00)
[2024-09-03] MEDS: Dexmedetomidine In 0.9 % NaCl 100 ML IV SCH (14:34)
[2024-09-03] MEDS: Metoclopramide HCl 10 MG (2 mL) VIAL IVP SCH (14:54)
[2024-09-03] MEDS: Rifaximin 550 MG TAB PO SCH (22:06)
[2024-09-04] MEDS: Labetalol HCl 100 MG/20 ML VIAL SLOW IVP PRN (03:52)
[2024-09-04 04:31] LABS: Hematocrit 30.5 % (36.0-47.0); Hemoglobin 9.7 g/dL (12.0-16.0); Mean Corpuscular HGB CONC 31.8 g/dL (32.0-36.0); Mean Corpuscular Hemoglobin 26.9 pg (27.0-31.0); Mean Corpuscular Volume 84.5 fL (78.0-98.0); Mean Platelet Volume 9.7 fL (7.4-10.4); Platelet Count 200 10x3/uL (130-400); RBC Distribution Width 18.9 % (11.5-14.5); Red Blood Cell (RBC) Count 3.61 mill/uL (4.20-5.40)
[2024-09-04 04:42] LABS: Anion Gap 18 mmol/L (10-20); BUN (Urea Nitrogen) 39 mg/dL (9.8-20.1); Calc. Creatinine Clearance 36 mL/min (70-130); Calcium 9.9 mg/dL (7.8-10.44); Carbon Dioxide 19 mmol/L (23-31); Chloride 109 mmol/L (98-107); Estimated GFR 24; Glucose 156 mg/dL (80-115); Potassium 4.2 mmol/L (3.5-5.1); Sodium 142 mmol/L (136-145)
[2024-09-04 07:46] LABS: Anisocytosis SLIGHT = 6-15 cells HPF (0-5); Band 3 % (5-11); Eosinophils 4 % (0-10); Hypochromia SLIGHT = 6-15 cells HPF (0-5); Large Platelets 1.9 % (0-5); Lymphocytes 8 % (21-51); Metamyelocyte 1 % (0-0); Monocytes 5 % (0-10); Neutrophil 79 % (42-75); Platelet Adequacy Comment Platelets Normal; Polychromasia SLIGHT = 2-3 cells HPF (0-2); Toxic Granulation SLIGHT
[2024-09-04] MEDS ORDERED: Heparin 10,000 UNITS/ 10 ML VIAL ONE (08:51)
[2024-09-04] MEDS: Dexmedetomidine 1,000 MCG in NS 250 mL IVPB SCH (10:13)
[2024-09-04] MEDS: Haloperidol Lactate 5 MG/ML VIAL IM SCH (10:13)
[2024-09-04] MEDS: Scopolamine 1 mg/72 hour Patch TD SCH (10:19)
[2024-09-04] MEDS: Haloperidol Lactate 5 MG/ML VIAL SLOW IVP SCH (14:00)
[2024-09-04] MEDS: Haloperidol Lactate 5 MG/ML VIAL ONE (14:11)
[2024-09-05 04:43] LABS: #Basophils Less than 0.03 10x3/uL (0.0-0.2); %Basophils 0.2 % (0.0-1.0); %Eosinophils 4.1 % (0.0-10.0); %Lymphocytes 8.7 % (21.0-51.0); %Monocytes 5.2 % (0.0-10.0); %Neutrophils 77.9 % (42.0-75.0); Hematocrit 25.6 % (36.0-47.0); Hemoglobin 7.9 g/dL (12.0-16.0); Mean Corpuscular HGB CONC 30.9 g/dL (32.0-36.0); Mean Corpuscular Hemoglobin 26.9 pg (27.0-31.0); Mean Corpuscular Volume 87.1 fL (78.0-98.0); Mean Platelet Volume 9.8 fL (7.4-10.4); Platelet Count 170 10x3/uL (130-400); RBC Distribution Width 18.8 % (11.5-14.5); Red Blood Cell (RBC) Count 2.94 mill/uL (4.20-5.40)
[2024-09-05 05:11] LABS: Anion Gap 15 mmol/L (10-20); BUN (Urea Nitrogen) 17 mg/dL (9.8-20.1); Calc. Creatinine Clearance 60 mL/min (70-130); Calcium 8.5 mg/dL (7.8-10.44); Carbon Dioxide 20 mmol/L (23-31); Chloride 110 mmol/L (98-107); Estimated GFR 44; Glucose 138 mg/dL (80-115); Potassium 3.1 mmol/L (3.5-5.1); Sodium 142 mmol/L (136-145)
[2024-09-05 06:16] LABS: Hematocrit 28.5 % (36.0-47.0); Hemoglobin 8.8 g/dL (12.0-16.0)
[2024-09-05] MEDS: Potassium Chloride 20 MEQ in Premix 1 BAG IVPB SCH (06:21)
[2024-09-05 06:32] LABS: Magnesium 1.6 mg/dL (1.6-2.6); Phosphorus 2.4 mg/dL (2.3-4.7)
[2024-09-05] MEDS: Potassium Chloride 40 MEQ in Premix 1 BAG IVPB SCH (08:53)
[2024-09-06 05:15] LABS: #Basophils Less than 0.03 10x3/uL (0.0-0.2); %Basophils 0.2 % (0.0-1.0); %Lymphocytes 8.1 % (21.0-51.0); %Monocytes 4.9 % (0.0-10.0); %Neutrophils 81.2 % (42.0-75.0); Hematocrit 27.8 % (36.0-47.0); Hemoglobin 8.6 g/dL (12.0-16.0); Mean Corpuscular HGB CONC 30.9 g/dL (32.0-36.0); Mean Corpuscular Hemoglobin 26.9 pg (27.0-31.0); Mean Corpuscular Volume 86.9 fL (78.0-98.0); Mean Platelet Volume 9.8 fL (7.4-10.4); Platelet Count 232 10x3/uL (130-400); RBC Distribution Width 18.6 % (11.5-14.5)
[2024-09-06 05:30] LABS: ALT (SGPT) 12 U/L (8-55); AST (SGOT) 28 U/L (5-34); Albumin 2.6 g/dL (3.4-4.8); Alkaline Phosphatase 168 U/L (40-110); Anion Gap 18 mmol/L (10-20); BUN (Urea Nitrogen) 19 mg/dL (9.8-20.1); Bilirubin, Total 0.5 mg/dL (0.2-1.2); Calc. Creatinine Clearance 48 mL/min (70-130); Calcium 9.7 mg/dL (7.8-10.44); Carbon Dioxide 22 mmol/L (23-31); Chloride 107 mmol/L (98-107); Estimated GFR 34; Globulin 3.8 g/dL (2.4-3.5); Glucose 142 mg/dL (80-115); Potassium 3.5 mmol/L (3.5-5.1); Protein, Total 6.4 g/dL (5.8-8.1); Sodium 143 mmol/L (136-145)
[2024-09-06] MEDS: Albumin 25% 25 GM (100 mL) BOT IVPB SCH (10:37)
[2024-09-07 04:44] LABS: #Basophils Less than 0.03 10x3/uL (0.0-0.2); %Basophils 0.2 % (0.0-1.0); %Eosinophils 2.5 % (0.0-10.0); %Lymphocytes 6.8 % (21.0-51.0); %Monocytes 5.6 % (0.0-10.0); %Neutrophils 83.6 % (42.0-75.0); Hemoglobin 7.9 g/dL (12.0-16.0); Mean Corpuscular HGB CONC 30.4 g/dL (32.0-36.0); Mean Corpuscular Hemoglobin 27.1 pg (27.0-31.0); Platelet Count 216 10x3/uL (130-400); RBC Distribution Width 18.3 % (11.5-14.5); Red Blood Cell (RBC) Count 2.92 mill/uL (4.20-5.40)
[2024-09-07 05:02] LABS: ALT (SGPT) 14 U/L (8-55); AST (SGOT) 23 U/L (5-34); Albumin 3.8 g/dL (3.4-4.8); Alkaline Phosphatase 161 U/L (40-110); Anion Gap 17 mmol/L (10-20); BUN (Urea Nitrogen) 26 mg/dL (9.8-20.1); Bilirubin, Total 0.8 mg/dL (0.2-1.2); Calc. Creatinine Clearance 44 mL/min (70-130); Calcium 9.9 mg/dL (7.8-10.44); Carbon Dioxide 22 mmol/L (23-31); Chloride 107 mmol/L (98-107); Estimated GFR 32; Globulin 3.1 g/dL (2.4-3.5); Glucose 138 mg/dL (80-115); Potassium 3.2 mmol/L (3.5-5.1); Protein, Total 6.9 g/dL (5.8-8.1); Sodium 143 mmol/L (136-145)
[2024-09-07] MEDS: NS 0.9% w/ 20 MEQ KCL 1,000 ML/1,000 ML BAG IV SCH (11:26)
[2024-09-08 04:57] LABS: #Basophils Less than 0.03 10x3/uL (0.0-0.2); %Basophils 0.2 % (0.0-1.0); %Eosinophils 2.4 % (0.0-10.0); %Lymphocytes 7.2 % (21.0-51.0); %Monocytes 5.9 % (0.0-10.0); %Neutrophils 83.4 % (42.0-75.0); Hematocrit 25.9 % (36.0-47.0); Hemoglobin 7.8 g/dL (12.0-16.0); Mean Corpuscular HGB CONC 30.1 g/dL (32.0-36.0); Mean Corpuscular Hemoglobin 27.2 pg (27.0-31.0); Mean Corpuscular Volume 90.2 fL (78.0-98.0); Mean Platelet Volume 8.9 fL (7.4-10.4); Platelet Count 204 10x3/uL (130-400); RBC Distribution Width 18.3 % (11.5-14.5); Red Blood Cell (RBC) Count 2.87 mill/uL (4.20-5.40)
[2024-09-08 05:24] LABS: ALT (SGPT) 24 U/L (8-55); AST (SGOT) 61 U/L (5-34); Albumin 3.1 g/dL (3.4-4.8); Alkaline Phosphatase 253 U/L (40-110); Anion Gap 15 mmol/L (10-20); BUN (Urea Nitrogen) 32 mg/dL (9.8-20.1); Bilirubin, Total 0.5 mg/dL (0.2-1.2); Calc. Creatinine Clearance 41 mL/min (70-130); Calcium 9.3 mg/dL (7.8-10.44); Carbon Dioxide 22 mmol/L (23-31); Chloride 113 mmol/L (98-107); Estimated GFR 29; Glucose 145 mg/dL (80-115); Potassium 3.7 mmol/L (3.5-5.1); Protein, Total 6.1 g/dL (5.8-8.1); Sodium 146 mmol/L (136-145)
[2024-09-08 06:29] LABS: Actual Bicarbonate (HCO3a) 20.7 mEq/L (22-28); Base Excess (BEa) -4.3 mEq/L (-2.0 to +3.0); CO2 Tension 37.4 mmHg (35.0-45.0); Calcium, Ionized (arterial) 1.29 mmol/L (1.12-1.30); Hematocrit-ABG 26 % (36.0-47.0); Hemoglobin (Hb) 8.7 g/dL (12.0-16.0); O2 Tension (PaO2), arterial 88.2 mmHg (> 80.0); Potassium - ABG Lab 3.67 mmol/L (3.70-5.30); pH, Arterial 7.361 (7.35-7.45)
[2024-09-08 06:32] LABS: Puncture Site Right Radial artery
[2024-09-08] MEDS: Anastrozole 1 MG TAB PO SCH (07:54)
[2024-09-08] MEDS: 1/2 NS w/Potassium 20 mEq 1,000 ML IV SCH (08:12)
[2024-09-09 04:35] LABS: #Basophils Less than 0.03 10x3/uL (0.0-0.2); %Basophils 0.1 % (0.0-1.0); %Eosinophils 2.7 % (0.0-10.0); %Lymphocytes 7.8 % (21.0-51.0); %Monocytes 5.5 % (0.0-10.0); %Neutrophils 82.7 % (42.0-75.0); Hematocrit 25.4 % (36.0-47.0); Hemoglobin 7.6 g/dL (12.0-16.0); Mean Corpuscular HGB CONC 29.9 g/dL (32.0-36.0); Mean Corpuscular Hemoglobin 26.7 pg (27.0-31.0); Mean Corpuscular Volume 89.1 fL (78.0-98.0); Mean Platelet Volume 9.4 fL (7.4-10.4); Platelet Count 206 10x3/uL (130-400); RBC Distribution Width 18.1 % (11.5-14.5); Red Blood Cell (RBC) Count 2.85 mill/uL (4.20-5.40)
[2024-09-09 05:07] LABS: ALT (SGPT) 25 U/L (8-55); AST (SGOT) 49 U/L (5-34); Albumin 2.7 g/dL (3.4-4.8); Alkaline Phosphatase 232 U/L (40-110); Anion Gap 12 mmol/L (10-20); BUN (Urea Nitrogen) 42 mg/dL (9.8-20.1); Bilirubin, Total 0.5 mg/dL (0.2-1.2); Calc. Creatinine Clearance 34 mL/min (70-130); Carbon Dioxide 20 mmol/L (23-31); Chloride 113 mmol/L (98-107); Estimated GFR 22; Globulin 3.1 g/dL (2.4-3.5); Glucose 156 mg/dL (80-115); Protein, Total 5.8 g/dL (5.8-8.1); Sodium 141 mmol/L (136-145)
[2024-09-09 12:46] VITALS: BMI 40.6
[2024-09-09] MEDS ORDERED: hydrALAZINE 20 MG/ML VIAL SLOW IVP PRN (13:35)
[2024-09-09] MEDS: Furosemide 40 MG (4 mL) VIAL SLOW IVP SCH (13:46)
[2024-09-09] MEDS: Furosemide 40 MG (4 mL) VIAL ONE (13:47)
[2024-09-09] MEDS: Fat Emulsion 250 ML IVPB SCH (15:11)
[2024-09-09] MEDS: Amino Acids 4.25 %/Dextrose 5% 1,000 ML IV SCH (15:11)
[2024-09-09] MEDS: Morphine 2 MG/ML VIAL SLOW IVP SCH (20:37)
[2024-09-10 04:50] LABS: #Basophils Less than 0.03 10x3/uL (0.0-0.2); %Basophils 0.2 % (0.0-1.0); %Eosinophils 2.3 % (0.0-10.0); %Lymphocytes 9.6 % (21.0-51.0); %Monocytes 7.6 % (0.0-10.0); %Neutrophils 78.2 % (42.0-75.0); Hematocrit 26.3 % (36.0-47.0); Hemoglobin 7.9 g/dL (12.0-16.0); Mean Corpuscular Hemoglobin 27.1 pg (27.0-31.0); Mean Corpuscular Volume 90.4 fL (78.0-98.0); Mean Platelet Volume 9.1 fL (7.4-10.4); Platelet Count 255 10x3/uL (130-400); RBC Distribution Width 18.1 % (11.5-14.5); Red Blood Cell (RBC) Count 2.91 mill/uL (4.20-5.40)
[2024-09-10 05:14] LABS: ALT (SGPT) 39 U/L (Less than 34); AST (SGOT) 100 U/L (11-34); Albumin 2.6 g/dL (3.1-4.5); Alkaline Phosphatase 321 U/L (40-110); Anion Gap 11 mmol/L (10-20); BUN (Urea Nitrogen) 50 mg/dL (9.8-20.1); Bilirubin, Total 0.3 mg/dL (0.3-1.2); Calc. Creatinine Clearance 32 mL/min (70-130); Calcium 9.3 mg/dL (7.8-10.44); Carbon Dioxide 19 mmol/L (23-31); Chloride 111 mmol/L (98-107); Estimated GFR 21; Globulin 3.4 g/dL (2.4-3.5); Glucose 180 mg/dL (80-115); Sodium 137 mmol/L (136-145)
[2024-09-10] MEDS ORDERED: Furosemide 40 MG (4 mL) VIAL SLOW IVP SCH (07:45)
[2024-09-10 09:26] VITALS: BP 128/89
[2024-09-10] MEDS: Albumin 25% 25 GM (100 mL) BOT IVPB SCH (11:32)
[2024-09-10 12:09] LABS: Actual Bicarbonate (HCO3v) 19.3 mEq/L (22-28); Base Excess -10.7 mEq/L (-2.0 to +3.0); Calcium, Ionized (venous) 1.37 mmol/L (1.16-1.32); Chloride (VBG) 105 mmol/L (98-106); Hematocrit-VBG 27 % (36.0-47.0); Hemoglobin (Hb) 9.1 g/dL (11.7-16.0); Potassium (VBG) 4.33 mmol/L (3.70-5.30); Sodium 136 mmol/L (133-146)
[2024-09-10 12:10] LABS: pH (venous) 7.075 (7.32-7.43)
[2024-09-10] MEDS: Furosemide 40 MG (4 mL) VIAL SLOW IVP SCH (13:11)
[2024-09-10 13:24] LABS: Actual Bicarbonate (HCO3v) 19.3 mEq/L (22-28); Base Excess -8.1 mEq/L (-2.0 to +3.0); Calcium, Ionized (venous) 1.35 mmol/L (1.16-1.32); Chloride (VBG) 105 mmol/L (98-106); Hematocrit-VBG 24 % (36.0-47.0); Hemoglobin (Hb) 8.1 g/dL (11.7-16.0); Potassium (VBG) 4.27 mmol/L (3.70-5.30); Sodium 134 mmol/L (133-146)
[2024-09-10] MEDS: Propofol 1,000 MG/100 ML VIAL IV ONE (14:23)
[2024-09-10] MEDS: fentaNYL 50 mcg/mL 1 mL Vial ONE (14:23)
[2024-09-10] MEDS: Etomidate 40 MG (20 mL) VIAL ONE (14:23)
[2024-09-10 20:16] VITALS: TEMP 100.4
[2024-09-10] MEDS: Morphine 2 MG/ML VIAL SLOW IVP SCH (20:35)
[2024-09-10] MEDS ORDERED: NOREPINEPHRINE 8 MG/250 ML-D5W 250 ML ONE (20:57)
== END 2024-09-10 21:07 | disposition expired | DRG 70 ==
LOC: 2SE 18:46 → CCU 08-30 17:09
PROVIDERS: ADMIT Internal Medicine; ATTEND Internal Medicine
PROC: 5A1D70Z Performance of Urinary Filtration, Intermittent, Less than 6 Hours Per Day (ICD-10-PCS; 2024-08-26)
PROC: 4A00X4Z Measurement of Central Nervous Electrical Activity, External Approach (ICD-10-PCS; principal; 2024-08-27)
PROC: 3E02340 Introduction of Influenza Vaccine into Muscle, Percutaneous Approach (ICD-10-PCS; 2024-08-27)
PROC: 02HV33Z Insertion of Infusion Device into Superior Vena Cava, Percutaneous Approach (ICD-10-PCS; 2024-08-30)
PROC: 0BH17EZ Insertion of Endotracheal Airway into Trachea, Via Natural or Artificial Opening (ICD-10-PCS; 2024-08-30)
PROC: 5A1955Z Respiratory Ventilation, Greater than 96 Consecutive Hours (ICD-10-PCS; 2024-08-30)
PROC: 30233N1 Transfusion of Nonautologous Red Blood Cells into Peripheral Vein, Percutaneous Approach (ICD-10-PCS; 2024-08-30)
PROC: 0DJ08ZZ Inspection of Upper Intestinal Tract, Via Natural or Artificial Opening Endoscopic (ICD-10-PCS; 2024-08-31)
PROC: 4A133R1 Monitoring of Arterial Saturation, Peripheral, Percutaneous Approach (ICD-10-PCS; 2024-08-31)
PROC: 02HV33Z Insertion of Infusion Device into Superior Vena Cava, Percutaneous Approach (ICD-10-PCS; 2024-09-02)
PROC: B548ZZA Ultrasonography of Superior Vena Cava, Guidance (ICD-10-PCS; 2024-09-02)
PROC: 0DCP7ZZ Extirpation of Matter from Rectum, Via Natural or Artificial Opening (ICD-10-PCS; 2024-09-07)
DX: G93.41 Metabolic encephalopathy (principal); J96.21 Acute and chronic respiratory failure with hypoxia; K26.4 Chronic or unspecified duodenal ulcer with hemorrhage; K21.01 Gastro-esophageal reflux disease with esophagitis, with bleeding; J96.22 Acute and chronic respiratory failure with hypercapnia; N17.0 Acute kidney failure with tubular necrosis; J90 Pleural effusion, not elsewhere classified; Z68.41 Body mass index [BMI] 40.0-44.9, adult; R04.2 Hemoptysis; D62 Acute posthemorrhagic anemia; E87.0 Hyperosmolality and hypernatremia; E87.1 Hypo-osmolality and hyponatremia; R18.8 Other ascites; K31.1 Adult hypertrophic pyloric stenosis; E87.5 Hyperkalemia; Z66 Do not resuscitate; Z51.5 Encounter for palliative care; I27.20 Pulmonary hypertension, unspecified; E83.42 Hypomagnesemia; E83.52 Hypercalcemia; N18.32 Chronic kidney disease, stage 3b; G47.33 Obstructive sleep apnea (adult) (pediatric); D63.8 Anemia in other chronic diseases classified elsewhere; D86.89 Sarcoidosis of other sites; M10.9 Gout, unspecified; E11.42 Type 2 diabetes mellitus with diabetic polyneuropathy; R13.12 Dysphagia, oropharyngeal phase; E87.6 Hypokalemia; E11.22 Type 2 diabetes mellitus with diabetic chronic kidney disease; K76.82 Hepatic encephalopathy; K59.00 Constipation, unspecified; E03.9 Hypothyroidism, unspecified; R53.81 Other malaise; I12.9 Hypertensive chronic kidney disease with stage 1 through stage 4 chronic kidney disease, or unspecified chronic kidney disease; I95.9 Hypotension, unspecified; Z23 Encounter for immunization; K74.60 Unspecified cirrhosis of liver; Z85.3 Personal history of malignant neoplasm of breast; Z88.0 Allergy status to penicillin; Z88.8 Allergy status to other drugs, medicaments and biological substances; Z79.4 Long term (current) use of insulin; Z99.81 Dependence on supplemental oxygen; Z91.199 Patient's noncompliance with other medical treatment and regimen due to unspecified reason; Z90.49 Acquired absence of other specified parts of digestive tract; Z90.11 Acquired absence of right breast and nipple; Z95.0 Presence of cardiac pacemaker
CPT/HCPCS: 36415; 36416; 36430; 36600; 71045; 71250; 74018; 74177; 76770; 80048; 80053; 80306; 82140; 82570; 82805; 83735; 83880; 84100; 84300; 84443; 84550; 85025; 85610; 85730; 86704; 86706; 86803; 86850; 86900; 86901; 87340; 90935; 93306; 94002; 94003; 94640; 94660; 95700; 95711; 95957; G0257; J0360; J1630; J1642; J1644; J1650; J1815; J1940; J2060; J2272; J2354; J2405; J2470; J2550; J2704; J2765; J3010; J3480; J3490; J7030; J7050; J7620; P9016; P9047; Q0162; Q5105